=== PATIENT | male | born 1995 ===

== ENCOUNTER 2025-02-25 10:52 | Outpatient (CLI) | payer OTHER, SELFPAY | END 2025-02-25 10:53 | disposition home or self-care (01) | PROVIDERS: Visit Provider Family Medicine | DX: Z00.00 Encounter for general adult medical examination without abnormal findings (principal); Z13.6 Encounter for screening for cardiovascular disorders; Z13.29 Encounter for screening for other suspected endocrine disorder | CPT/HCPCS: 80061; 84443 ==